=== PATIENT | female | born 1975 | race African-American/Black ===

== ENCOUNTER 2024-07-05 01:47 | Emergency (ER) | payer BC ==
[~2024-07-05] VITALS: Ht 167.6 cm; Wt 75.0 kg
[2024-07-05 02:00] VITALS: BP 133/95; PULSE 91; RESP 18; TEMP 36.5; O2SAT 99
== END 2024-07-05 02:58 | disposition left against medical advice (07) ==
LOC: ER 01:47
DX: R10.11 Right upper quadrant pain (principal); I10 Essential (primary) hypertension; Z53.21 Procedure and treatment not carried out due to patient leaving prior to being seen by health care provider